=== PATIENT | male | born 1985 | race American Indian/Alaskan Native ===

== ENCOUNTER 2016-11-22 09:19 | Emergency (ER) | payer SELFPAY ==
--- NOTE | 2016-11-22 10:14 | Emergency Department Report ---
- General Chief Complaint: Upper Respiratory Infection Stated Complaint: COUGH/CP Time Seen by Provider: 11/22/16 09:41 Source: patient Mode of arrival: Ambulatory Limitations: No Limitations - History of Present Illness Initial Comments: Patient states that he is HIV positive with normal CD4 count of 300, here today complaining of 2 weeks of upper respiratory infection with productive sputum. Patient states that he has only had pneumonia once in his 10 years of being HIV positive. Patient also states that he is taking all of his HIV meds as prescribed. Patient denies fever, chills, or Rigors. MD Complaint: cough -: Gradual, week(s) Severity: mild Severity scale (0 -10): 1 Quality: aching Consistency: intermittent Improves With: nothing - Related Data Previous Rx's Medication Instructions Recorded Last Taken Type ALBUTEROL Inhaler [ProAir HFA 1 puff IH QID #1 inha 11/22/16 Unknown Rx Inhaler] Sulfamethoxazole/Trimethoprim 1 each PO BID #20 tablet 11/22/16 Unknown Rx [Bactrim DS TAB] Allergies Allergy/AdvReac Type Severity Reaction Status Date / Time No Known Allergies Allergy Unverified 11/22/16 09:36 ED Review of Systems ROS: Stated complaint: COUGH/CP Other details as noted in HPI Constitutional: denies: chills, diaphoresis, fever, malaise Eyes: denies: eye pain, eye discharge, vision change ENT: denies: ear pain, throat pain Respiratory: cough (productive of green sputum). denies: shortness of breath, SOB with exertion, SOB at rest, stridor, wheezing Cardiovascular: denies: chest pain, palpitations Endocrine: no symptoms reported Gastrointestinal: denies: abdominal pain, nausea, diarrhea Genitourinary: denies: urgency, dysuria Musculoskeletal: denies: back pain, joint swelling, arthralgia Skin: denies: rash, lesions Neurological: denies: headache, weakness, paresthesias Psychiatric: denies: anxiety, depression Hematological/Lymphatic: denies: easy bleeding, easy bruising ED Past Medical Hx - Past Medical History Previous Medical History?: Yes Hx HIV: Yes - Surgical History Past Surgical History?: No - Social History Smoking Status: Current Every Day Smoker Substance Use Type: Alcohol - Medications Home Medications: Home Medications Medication Instructions Recorded Confirmed Last Taken Type ALBUTEROL Inhaler [ProAir HFA 1 puff IH QID #1 inha 11/22/16 Unknown Rx Inhaler] Sulfamethoxazole/Trimethoprim 1 each PO BID #20 tablet 11/22/16 Unknown Rx [Bactrim DS TAB] ED Physical Exam - General Limitations: No Limitations General appearance: alert, in no apparent distress - Head Head exam: Present: atraumatic, normocephalic - Eye Eye exam: Present: normal appearance, PERRL, EOMI Pupils: Present: normal accommodation - ENT ENT exam: Present: mucous membranes moist - Neck Neck exam: Present: normal inspection - Respiratory Respiratory exam: Present: normal lung sounds bilaterally. Absent: respiratory distress, wheezes, rales, rhonchi, stridor, chest wall tenderness - Cardiovascular Cardiovascular Exam: Present: regular rate, normal rhythm. Absent: systolic murmur, diastolic murmur, rubs, gallop - GI/Abdominal GI/Abdominal exam: Present: soft, normal bowel sounds - Rectal Rectal exam: Present: deferred - Extremities Exam Extremities exam: Present: normal inspection - Back Exam Back exam: Present: normal inspection - Neurological Exam Neurological exam: Present: alert, oriented X3 - Psychiatric Psychiatric exam: Present: normal affect, normal mood - Skin Skin exam: Present: warm, dry, intact, normal color. Absent: rash ED Course Vital Signs 11/22/16 11/22/16 09:32 12:00 Temperature 98.0 F 98.2 F Pulse Rate 71 63 Respiratory 22 16 Rate Blood Pressure 132/94 Blood Pressure 137/89 [Left] O2 Sat by Pulse 99 97 Oximetry - Reevaluation(s) Reevaluation #1: 11/22/16 11:37 Patient resting comfortably, still afebrile, nontoxic, no respiratory distress. Patient relates he is ready for discharge. Reviewed normal chest x-ray, medications, diagnoses with patient and need to follow-up. Critical care attestation.: If time is entered above; I have spent that time in minutes in the direct care of this critically ill patient, excluding procedure time. ED Disposition Clinical Impression: URI (upper respiratory infection) Disposition: DISCHARGED TO HOME OR SELFCARE Is pt being admited?: No Condition: Stable Prescriptions: ALBUTEROL Inhaler [ProAir HFA Inhaler] 1 puff IH QID #1 inha Sulfamethoxazole/Trimethoprim [Bactrim DS TAB] 1 each PO BID #20 tablet Referrals: PRIMARY CARE, [Primary Care Provider] - 3-5 Days Forms: Work/School Release Form(ED)
[2016-11-22] MEDS ORDERED: XYLOCAINE 1% MPF 5 mL INFILTRATI ONE (10:16)
[2016-11-22] MEDS ORDERED: ROCEPHIN IM ONE (10:16)
--- NOTE | 2016-11-22 11:32 | XRay Report ---
ROUTINE CHEST, TWO VIEWS: HISTORY: Cough, congestion, upper respiratory infection. The trachea, heart, mediastinal contour, lung marrufo and bony thorax are unremarkable. IMPRESSION: Unremarkable chest x-ray.
[2016-11-22 12:06] VITALS: BP 137/89
== END 2016-11-22 12:06 | disposition home or self-care (01) ==
LOC: ED 09:19
DX: J06.9 Acute upper respiratory infection, unspecified (principal); F17.200 Nicotine dependence, unspecified, uncomplicated
CPT/HCPCS: 71020; 96372; 99283; J0696

== ENCOUNTER 2021-02-09 18:47 | Emergency (ER) | payer OTHER ==
[2021-02-09 21:20] VITALS: BP 145/92
--- NOTE | 2021-02-09 21:55 | XRay Report ---
CHEST 2 VIEWS INDICATION / CLINICAL INFORMATION: coughing. COMPARISON: None available. FINDINGS: SUPPORT DEVICES: None. HEART / MEDIASTINUM: No significant abnormality. LUNGS / PLEURA: No significant pulmonary or pleural abnormality. No pneumothorax. ADDITIONAL FINDINGS: No significant additional findings. IMPRESSION: 1. No acute findings. Signer Name: Ortiz Butts MD Signed: 02/09/2021 9:51 PM Workstation Name: [id number]
--- NOTE | 2021-02-10 06:50 | Emergency Department Report ---
ED General Adult HPI - General Chief complaint: Upper Respiratory Infection Stated complaint: COUGH,CHEST CONGESTION MUCUS Source: patient Mode of arrival: Ambulatory Limitations: No Limitations - History of Present Illness Initial comments: Patient is 36 years old male with history of HIV. Patient is compliant with his medication. Patient presented to the ER complaining of cough, productive with greenish sputum for the last week. Patient denied any fever or chills. No nausea or vomiting. Patient stated that he tested negative for COVID-19. Patient is not COVID-19 vaccinated yet. I encouraged him to get vaccinated as soon as possible. - Related Data Previous Rx's Medication Instructions Recorded Last Taken Type Albuterol Mdi (or & Nicu Only) 1 puff IH QID #1 inha 11/22/16 Unknown Rx [ProAir HFA Inhaler] Sulfamethoxazole/Trimethoprim 1 each PO BID #20 tablet 11/22/16 Unknown Rx [Bactrim DS TAB] Allergies Allergy/AdvReac Type Severity Reaction Status Date / Time No Known Allergies Allergy Verified 02/09/21 21:20 ED Review of Systems ROS: Stated complaint: COUGH,CHEST CONGESTION MUCUS Other details as noted in HPI Comment: All other systems reviewed and negative Constitutional: denies: chills, fever Respiratory: cough. denies: orthopnea, shortness of breath, SOB with exertion, SOB at rest Cardiovascular: denies: chest pain, palpitations, dyspnea on exertion Gastrointestinal: denies: abdominal pain, nausea, vomiting Musculoskeletal: denies: back pain Neurological: denies: headache, weakness, numbness, paresthesias, confusion, abnormal gait ED Past Medical Hx - Past Medical History Previous Medical History?: Yes Hx HIV: Yes - Surgical History Past Surgical History?: No - Social History Smoking Status: Current Every Day Smoker Substance Use Type: Alcohol - Medications Home Medications: Home Medications Medication Instructions Recorded Confirmed Last Taken Type Albuterol Mdi (or & Nicu Only) 1 puff IH QID #1 inha 11/22/16 Unknown Rx [ProAir HFA Inhaler] Sulfamethoxazole/Trimethoprim 1 each PO BID #20 tablet 11/22/16 Unknown Rx [Bactrim DS TAB] ED Physical Exam - General Limitations: No Limitations General appearance: alert, in no apparent distress - Head Head exam: Present: atraumatic, normocephalic, normal inspection - Eye Eye exam: Present: normal appearance - ENT ENT exam: Present: normal exam, normal orophraynx, mucous membranes moist - Neck Neck exam: Present: normal inspection, full ROM. Absent: tenderness, meningismus - Respiratory Respiratory exam: Present: normal lung sounds bilaterally. Absent: respiratory distress, wheezes, rales, rhonchi, stridor, chest wall tenderness, accessory muscle use, decreased breath sounds, prolonged expiratory - Cardiovascular Cardiovascular Exam: Present: regular rate, normal rhythm, normal heart sounds - GI/Abdominal GI/Abdominal exam: Present: soft, normal bowel sounds. Absent: distended, tenderness, guarding, rebound, rigid, organomegaly, mass, bruit, pulsatile mass, hernia - Extremities Exam Extremities exam: Present: normal inspection, full ROM, normal capillary refill. Absent: tenderness - Back Exam Back exam: Present: normal inspection, full ROM. Absent: CVA tenderness (R), CVA tenderness (L) - Neurological Exam Neurological exam: Present: alert, oriented X3, CN II-XII intact, normal gait, reflexes normal. Absent: motor sensory deficit - Psychiatric Psychiatric exam: Present: normal mood - Skin Skin exam: Present: warm, intact, normal color ED Course Vital Signs 02/09/21 21:15 Temperature 98.2 F Pulse Rate 78 Respiratory 18 Rate Blood Pressure 145/92 [Left] O2 Sat by Pulse 100 Oximetry ED Medical Decision Making - Radiology Data Radiology results: report reviewed - Medical Decision Making Patient is 36 years old male with history of HIV. Patient is compliant with his medication. Patient presented to the ER complaining of cough, productive with greenish sputum for the last week. Patient denied any fever or chills. No nausea or vomiting. Patient stated that he tested negative for COVID-19. Patient is not COVID-19 vaccinated yet. I encouraged him to get vaccinated as soon as possible. Chest x-ray is unremarkable. Labs reviewed and is negative for acute finding. Advised patient to follow-up with his primary doctor in the next 2 to 3 days and to return to the ER if he develop any new symptoms. Patient given prescription for Zithromax and Robitussin. Critical care attestation.: If time is entered above; I have spent that time in minutes in the direct care of this critically ill patient, excluding procedure time. ED Disposition Clinical Impression: Acute bronchitis Disposition: HOME / SELF CARE / HOMELESS Is pt being admited?: No Condition: Stable Instructions: Acute Bronchitis (ED), Acute Bronchitis, Adult, [id number] Referrals: [facility] [Provider Group] - 3-5 Days
== END 2021-02-10 07:54 | disposition home or self-care (01) ==
LOC: ED 18:47
DX: J20.9 Acute bronchitis, unspecified (principal); F17.200 Nicotine dependence, unspecified, uncomplicated; Z79.899 Other long term (current) drug therapy; Z21 Asymptomatic human immunodeficiency virus [HIV] infection status
CPT/HCPCS: 71046

== ENCOUNTER 2022-02-19 03:25 | Emergency (ER) | payer SELFPAY ==
[2022-02-19 03:35] VITALS: BP 134/95
--- NOTE | 2022-02-19 11:36 | XRay Report ---
CHEST 2 VIEWS INDICATION: shortness of breath. COMPARISON: 02/09/2021. FINDINGS: Support devices: None. Heart: Within normal limits. Lungs/Pleura: No acute air space or interstitial disease. No significant pleural effusion. IMPRESSION: No acute findings. Signer Name: Hal Kelley MD Signed: 02/19/2022 11:32 AM Workstation Name: [id number]
[2022-02-19] MEDS ORDERED: IPRATROPIUM 0.02% NEBU 2.5 ML IH ONE (12:02)
[2022-02-19] MEDS ORDERED: ALBUTEROL 2.5 MG/3 ML NEBU IH ONE (12:02)
[2022-02-19] MEDS ORDERED: methylPREDNISolone Sod Succinate 125 MG/2 ML INJ IM ONE (12:03)
--- NOTE | 2022-02-19 12:56 | Emergency Department Report ---
ED Shortness of Breath HPI - General Chief Complaint: Dyspnea/Respdistress Stated Complaint: chest pain Source: patient Mode of arrival: Ambulatory Limitations: No Limitations - History of Present Illness Initial Comments: 37-year-old male presents to the ED complaining shortness of breath and previous URI. Patient states that he just finished a course of azithromycin. Patient states that he smokes Black and milds cigars on a regular basis. Patient states he has never been diagnosed with asthma but is wheezing today. Patient is alert and oriented x3. No acute distress noted. No ill appearance noted MD Complaint: shortness of breath Onset/Timin -: week(s) Severity: moderate Pain Scale: 0 Consistency: constant Improves With: nothing - Related Data Previous Rx's Medication Instructions Recorded Last Taken Type Albuterol Mdi (or & Nicu Only) 1 puff IH QID #1 inha 11/22/16 Unknown Rx [ProAir HFA Inhaler] Sulfamethoxazole/Trimethoprim 1 each PO BID #20 tablet 11/22/16 Unknown Rx [Bactrim DS TAB] Amoxicillin [Amoxicillin TAB] 875 mg PO BID #14 tablet 02/10/21 Unknown Rx guaiFENesin [Robitussin] 5 ml PO TID PRN #100 ml 02/10/21 Unknown Rx Albuterol Mdi (or & Nicu Only) 2 puff IH QID PRN #8.5 gram 02/19/22 Unknown Rx [ProAir HFA Inhaler] predniSONE [Deltasone] 50 mg PO QDAY 5 Days #5 tab 02/19/22 Unknown Rx Allergies Allergy/AdvReac Type Severity Reaction Status Date / Time No Known Allergies Allergy Verified 02/09/21 21:20 ED Review of Systems ROS: Stated complaint: chest pain Other details as noted in HPI Constitutional: denies: chills, fever Eyes: denies: eye pain, eye discharge, vision change ENT: denies: ear pain, throat pain Respiratory: shortness of breath. denies: cough, wheezing Cardiovascular: denies: chest pain, palpitations Endocrine: no symptoms reported Gastrointestinal: denies: abdominal pain, nausea, diarrhea Genitourinary: denies: urgency, dysuria Musculoskeletal: denies: back pain, joint swelling, arthralgia Skin: denies: rash, lesions Neurological: denies: headache, weakness, paresthesias Psychiatric: denies: anxiety, depression Hematological/Lymphatic: denies: easy bleeding, easy bruising ED Past Medical Hx - Past Medical History Previous Medical History?: Yes Hx HIV: Yes - Surgical History Past Surgical History?: No - Social History Smoking Status: Current Every Day Smoker Substance Use Type: Alcohol - Medications Home Medications: Home Medications Medication Instructions Recorded Confirmed Last Taken Type Albuterol Mdi (or & Nicu Only) 1 puff IH QID #1 inha 11/22/16 Unknown Rx [ProAir HFA Inhaler] Sulfamethoxazole/Trimethoprim 1 each PO BID #20 tablet 11/22/16 Unknown Rx [Bactrim DS TAB] Amoxicillin [Amoxicillin TAB] 875 mg PO BID #14 tablet 02/10/21 Unknown Rx guaiFENesin [Robitussin] 5 ml PO TID PRN #100 ml 02/10/21 Unknown Rx Albuterol Mdi (or & Nicu Only) 2 puff IH QID PRN #8.5 gram 02/19/22 Unknown Rx [ProAir HFA Inhaler] predniSONE [Deltasone] 50 mg PO QDAY 5 Days #5 tab 02/19/22 Unknown Rx ED Physical Exam - General Limitations: No Limitations General appearance: alert, in no apparent distress - Head Head exam: Present: atraumatic, normocephalic - Eye Eye exam: Present: normal appearance - ENT ENT exam: Present: mucous membranes moist - Neck Neck exam: Present: normal inspection - Respiratory Respiratory exam: Present: normal lung sounds bilaterally, wheezes. Absent: respiratory distress - Cardiovascular Cardiovascular Exam: Present: regular rate, normal rhythm. Absent: systolic murmur, diastolic murmur, rubs, gallop - GI/Abdominal GI/Abdominal exam: Present: soft, normal bowel sounds - Rectal Rectal exam: Present: deferred - Extremities Exam Extremities exam: Present: normal inspection - Back Exam Back exam: Present: normal inspection - Neurological Exam Neurological exam: Present: alert, oriented X3 - Psychiatric Psychiatric exam: Present: normal affect, normal mood - Skin Skin exam: Present: warm, dry, intact, normal color. Absent: rash ED Course Vital Signs 02/19/22 02/19/22 03:31 12:21 Temperature 98.5 F Pulse Rate 89 Pulse Rate [ 62 Anterior Bilateral Throughout] Respiratory 16 Rate Respiratory 18 Rate [Anterior Bilateral Throughout] Blood Pressure 134/95 [Right] O2 Sat by Pulse 98 Oximetry ED Medical Decision Making - Radiology Data [facility] [address] [place] [address] XRay Report Signed Patient: PAM BAUTISTA MR#: [id number] : 1985 Acct:[id number] Age/Sex: 37 / M ADM Date: 02/19/22 Loc: ED Attending Dr: Ordering Physician: JENNIFER CRUZ Date of Service: 02/19/22 Procedure(s): XR chest routine 2V Accession Number(s): [id number] cc: JENNIFER CRUZ Fluoro Time In Minutes: CHEST 2 VIEWS INDICATION: shortness of breath. COMPARISON: 02/09/2021. FINDINGS: Support devices: None. Heart: Within normal limits. Lungs/Pleura: No acute air space or interstitial disease. No significant pleural effusion. IMPRESSION: No acute findings. Signer Name: Hal Kelley MD Signed: 02/19/2022 11:32 AM Workstation Name: [id number] Transcribed By: ES Dictated By: Hal Kelley MD Electronically Authenticated By: Hal Kelley MD Signed Date/Time: 02/19/22 113 DD/ 113 TD/TT: - Medical Decision Making 37-year-old male presents to the ED complaining shortness of breath and previous URI. Patient states that he just finished a course of azithromycin. Patient states that he smokes Black and milds cigars on a regular basis. Patient states he has never been diagnosed with asthma but is wheezing today. Patient is alert and oriented x3. No acute distress noted. No ill appearance noted. Albuterol/ Atrovent given DuoNeb treatment given for wheeze. Chest x-ray showed no abnormality Rechecked the patient is resting quietly , comfortable and feeling better. I discussed the results of diagnostic study, my clinical impression and the plan f or further treatment with the patient. Patient agrees with plan and discharge at this present time. All question addressed. I have given the patient instruction regarding a diagnosis ,expectation ,follow- up and return precaution. I explained to the patient that emergent condition may arise and to return to the ED for new worsen and any new persisting condition. I have explained the importance of following up with the primary care physician or referral physician listed below has instructed. The patient verbalized understanding of discharge instruction. Critical care attestation.: If time is entered above; I have spent that time in minutes in the direct care of this critically ill patient, excluding procedure time. ED Disposition Clinical Impression: URI (upper respiratory infection) Qualifiers: URI type: unspecified URI Qualified Code(s): J06.9 - Acute upper respiratory infection, unspecified Disposition: 01 HOME / SELF CARE / HOMELESS Is pt being admited?: No Does the pt Need Aspirin: No Condition: Stable Instructions: Upper Respiratory Infection, Adult, [id number] Additional Instructions: Take medication as prescribed Return to the ED for any worsening symptoms Prescriptions: predniSONE [Deltasone] 50 mg PO QDAY 5 Days #5 tab Albuterol Mdi (or & Nicu Only) [ProAir HFA Inhaler] 2 puff IH QID PRN #8.5 gram PRN Reason: Shortness Of Breath Referrals: GIGI PERDOMO MD [Primary Care Provider] - 3-5 Days Forms: Work/School Release Form(ED) Time of Disposition: 12:56
== END 2022-02-19 13:03 | disposition home or self-care (01) ==
LOC: ED 03:25
DX: J06.9 Acute upper respiratory infection, unspecified (principal); Z21 Asymptomatic human immunodeficiency virus [HIV] infection status; F17.200 Nicotine dependence, unspecified, uncomplicated
CPT/HCPCS: 71046; 94640; 96372; 99283; J2930; 94644